=== PATIENT | male | born 1985 | race Caucasian/White ===

== ENCOUNTER 2021-07-03 14:29 | Outpatient (CLI) | payer OTHER, SELFPAY ==
[2021-07-03 17:54] LABS: Hematocrit 43.2 % (42.0-52.0); Hemoglobin 14.9 g/dL (14.0-18.0); Mean Corpuscular HGB Conc 34.5 g/dl (32-36); Mean Corpuscular Hemoglobin 29.6 pg (26-34); Mean Corpuscular Volume 85.7 fl (80-100); Mean Platelet Volume 10.1 fl (7.4-10.4); Platelet Count Result 291 k/mm3 (150-375); Red Blood Count 5.04 M/mm3 (4.6-6.20); Red Cell Distribution Width 12.8 % (11.5-14.5)
[2021-07-03 18:09] LABS: Alanine Aminotransferase 25 U/L (4-50); Albumin Level 4.8 g/dL (3.5-5.1); Alkaline Phosphatase 66 U/L (38-126); Anion Gap 11 mmol/L (8-16); Aspartate Amino Transferase 29 U/L (17-59); Bilirubin,Total 0.8 mg/dL (0.2-1.3); Blood Urea Nitrogen 16 mg/dL (9-20); Calcium 9.9 mg/dL (8.4-10.2); Carbon Dioxide 24 mmol/L (22-30); Chloride 105 mmol/L (98-107); Cholesterol 169 mg/dL (0-200); Estimated Glomerular Filt Rate > 60; Glucose 95 mg/dL (65-110); HDL Direct 30 mg/dL; Sodium 140 mmol/L (137-145); Triglycerides 165 mg/dL (<150)
[2021-07-03 18:20] LABS: LDL Cholesterol Direct 95 mg/dL
== END 2021-07-03 14:30 | disposition home or self-care (01) ==
PROVIDERS: PCP Family Medicine; Visit Provider Family Medicine
DX: Z00.00 Encounter for general adult medical examination without abnormal findings (principal)
CPT/HCPCS: 36415; 80053; 80061; 85027

== ENCOUNTER 2021-11-13 16:59 | Emergency (ER) | payer OTHER, SELFPAY ==
--- NOTE | ~2021-11-13 | CT_ITS ---
EXAMINATION: CT brain wo con DATE: 11/13/2021 19:16 INDICATION: head injury, hit by piece of metal,lac to forehead TECHNIQUE: Computed tomography (CT) of the head was performed without intravenous contrast. The mA wa s adjusted according to patient size. Iterative reconstruction technique was employed. The dose-lengt h product was 681.00 mGy-cm. COMPARISON: None FINDINGS: No acute intracranial hemorrhage or extra-axial fluid collection. No hydrocephalus, mass, or herniation. No acute ischemic infarct. Unremarkable dural venous sinus attenuation. No acute osseous abnormality. The aerated spaces are clear. IMPRESSION: No acute intracranial process. Reviewed, dictated and finalized at location K.
[2021-11-13 17:00] VITALS: BP 126/75; PULSE 82; RESP 15; TEMP 36.5; O2SAT 98
--- NOTE | 2021-11-13 18:52 | ED.WOUNDLAC ---
HPI - Wound/Laceration General Chief Complaint: Wound/Laceration Stated Complaint: FACIAL INJURY Time Seen by Provider: 11/13/21 18:34 Source: patient Mode of arrival: ambulatory Limitations: no limitations History of Present Illness HPI narrative: Patient is a 36-year-old male who presents the ED with report of a laceration to his forehead. Patient reports he was cleaning outside in his shed today when a piece of tin metal sheeting fell off a shelf and hit him in his head. He sustained a small laceration to his forehead. He denied losing consciousness, but did report having mild headache and lightheadedness after the initial incident. The symptoms have since resolved. No neck pain. Bleeding controlled upon my evaluation. Patient's tetanus status up-to-date as of a few months ago when he established care with a new PCP. Related Data Home Medications Medication Instructions Recorded Confirmed No Home Medications 07/03/21 07/03/21 Allergies Allergy/AdvReac Type Severity Reaction Status Date / Time No Known Allergies Allergy Verified 07/03/21 13:46 Review of Systems Review of Systems: CONSTITUTIONAL: Denies fever. SKIN: Reports laceration to forehead. Denies rash or itching. MUSCULOSKELETAL: Denies back pain, neck pain. NEUROLOGIC: Reports head injury, lightheadedness (resolved), headache (resolved). Denies confusion, numbness, tingling, weakness. All systems reviewed & are unremarkable except as noted in HPI and below PMFSH Past Medical History Medical History No pertinent past medical history Surgical History Surgical History History of appendectomy Family History Family History (Updated 07/03/21 @ 13:47 by Roxie Denis [facility]) Grandparent Diabetes mellitus Heart problem Social History Social History Smoking status: Never smoker Alcohol intake: current Drinks per week: 1 Substance use: never Gender identity (if verbalized by the patient): Male Exam Narrative: GENERAL: Well appearing, well-nourished, non-toxic, in no acute distress. HEAD: Normocephalic. 1 cm linear laceration to midline forehead just above glabella, 0.5cm of the laceration is superficial. NECK: Supple. No adenopathy. No pain with ROM. RESPIRATORY: Airway patent, respirations nonlabored. CARDIOVASCULAR: Regular rate and rhythm without murmurs, rubs, or gallops. Radial pulses 2+ and equal bilaterally. MUSCULOSKELETAL: Moves all extremities. Strength/ROM intact without gross deformities. SKIN: Warm, dry, normal color. No rashes. NEURO: A&O X3. Speech clear. Cranial nerves II-XII grossly intact. Steady gait. No ataxic movements. PSYCHIATRIC: Appropriate mood and affect. Normal interaction. Course Vital Signs Vital signs: Vital Signs Temperature 97.7 F 11/13/21 17:00 Pulse Rate 82 11/13/21 17:00 Respiratory Rate 15 11/13/21 17:00 Blood Pressure 126/75 11/13/21 17:00 Pulse Oximetry 98 11/13/21 17:00 Temperature 97.7 F 11/13/21 17:00 Pulse Rate 64 11/13/21 19:00 Respiratory Rate 17 11/13/21 19:00 Blood Pressure 120/80 11/13/21 19:00 Pulse Oximetry 97 11/13/21 19:00 Procedures Laceration Laceration 1: Date: 11/13/21 Time: 19:40 Site: face (forehead) Size (cm): 0.5 Description: linear Depth: simple, single layer Local Anesthetic: lidocaine 1% and with epi Amount of anesthesia used (mL): 5 Pre-repair: wound explored and irrigated ====== Skin Level ====== Skin layer closed with: nylon Size (cm): 4-0 Number of sutures: 1 Technique: simple, interrupted ====== Subcutaneous Layer ====== ====== Muscle Layer ====== ====== Tendon Layer ====== MDM - Wound/Laceration MDM Narrative Medical decision making narrative
[2021-11-13 19:00] VITALS: BP 120/80; PULSE 64; RESP 17; O2SAT 97
== END 2021-11-13 20:20 | disposition home or self-care (01) ==
PROVIDERS: Emergency Provider Emergency Medicine; PCP Family Medicine
DX: S01.81XA Laceration without foreign body of other part of head, initial encounter (principal); W20.8XXA Other cause of strike by thrown, projected or falling object, initial encounter
CPT/HCPCS: 12011; 70450; 99284

== ENCOUNTER → 2022-10-02 15:22 | Outpatient (CLI) | payer OTHER, SELFPAY ==
--- NOTE | ~2022-10-02 | MR_ITS ---
EXAMINATION: MR pituitary wo/w con DATE: 10/02/2022 16:23 INDICATION: Hypogonadism. TECHNIQUE: Magnetic resonance imaging (MRI) of the brain and brainstem was performed without and with 20 mL MultiHance intravenous contrast. COMPARISON: Head CT 11/13/2021 FINDINGS: The pituitary is normal in size with height of 4 mm and concave superior margin. The infund ibulum is at the midline. There is no intracranial hemorrhage, acute infarction, or abnormal intracra nial mass lesion. There are 3 foci of increased T2-weighted signal intensity in the cerebral white ma tter, which is normal for the patient's age. The ventricles are normal in size. There is a mucous ret ention cyst in left maxillary sinus. The orbits are normal. The mastoid air cells are normal. IMPRESSION: 1. Normal pituitary. Normal brain. Reviewed, dictated and finalized at location A.
== END ==
PROVIDERS: PCP Family Medicine; Visit Provider Family Medicine
DX: R79.89 Other specified abnormal findings of blood chemistry (principal); E23.0 Hypopituitarism
CPT/HCPCS: 70553; A9577

== ENCOUNTER 2023-04-08 07:17 | Outpatient (CLI) | payer OTHER, SELFPAY ==
[2023-04-08 19:45] LABS: Hematocrit 50.5 % (42.0-52.0); Mean Corpuscular HGB Conc 31.7 g/dl (32-36); Mean Corpuscular Hemoglobin 29.2 pg (26-34); Mean Corpuscular Volume 92.2 fl (80-100); Mean Platelet Volume 10.5 fl (7.4-10.4); Platelet Count Result 242 k/mm3 (150-375); Red Blood Count 5.48 M/mm3 (4.6-6.20); Red Cell Distribution Width 13.2 % (11.5-14.5); White Blood Count 6.4 K/mm3 (4.5-10.0)
[2023-04-13 13:45] LABS: Testosterone Free 218.3 pg/mL (35.0-155.0); Testosterone Total 745 ng/dL (250-1100)
== END 2023-04-08 07:18 | disposition home or self-care (01) ==
PROVIDERS: PCP Family Medicine; Visit Provider Family Medicine
DX: R68.82 Decreased libido (principal); R79.89 Other specified abnormal findings of blood chemistry
CPT/HCPCS: 36415; 84402; 84403; 85027

== ENCOUNTER 2023-08-01 11:58 | Emergency (ER) | payer OTHER, SELFPAY ==
[2023-08-01 12:10] VITALS: BP 118/89; PULSE 84; RESP 16; TEMP 36.4; O2SAT 99
--- NOTE | 2023-08-01 12:21 | ED.URI ---
HPI - URI/Sore Throat General Chief Complaint: Upper Respiratory Infection Stated Complaint: SORE THROAT Time Seen by Provider: 08/01/23 12:16 Source: patient and RN notes reviewed Mode of arrival: ambulatory Limitations: no limitations History of Present Illness HPI Narrative: 38-year-old male presents with concern for sore throat. Reports postnasal drainage as well. Reports symptoms started about 4 days ago. He denies taking any [id number] medications for his symptoms. He denies fever, body aches, chills, sweats. Reports occasional cough and he had a headache last week that has resolved. MD elicited complaint: sore throat Related Data Allergies Allergy/AdvReac Type Severity Reaction Status Date / Time No Known Allergies Allergy Verified 08/06/22 15:26 Review of Systems Review of Systems: CONSTITUTIONAL: Denies malaise, chills, sweats, or fever. EYES: Denies visual changes, redness, or discharge. ENT: Reports postnasal drainage and sore throat. CARDIOVASCULAR: Denies chest pain, palpitations, or edema. RESPIRATORY: Reports cough. Denies dyspnea. GASTROINTESTINAL: Denies abdominal pain, nausea, vomiting, diarrhea SKIN: Denies rash or itching. MUSCULOSKELETAL: Denies myalgia. NEUROLOGIC: Denies headache. All systems reviewed & are unremarkable except as noted in HPI and below PMFSH Past Medical History Medical History No pertinent past medical history Surgical History Surgical History History of appendectomy Family History Family History (Updated 07/03/21 @ 13:47 by Roxie Denis [facility]) Grandparent Diabetes mellitus Heart problem Social History Social History (Updated 08/06/22 @ 15:28 by Jacki Turk MA) Smoking status: Never smoker Alcohol intake: current Drinks per week: 1 Substance use: never Current Housing: Decline to Answer Concerned About Future Housing: Decline to Answer Difficulty Paying Gas/Electric Bills: Decline to Answer Difficulty Paying for Meds: Decline to Answer Currently Unemployed: Decline to Answer Difficulty w/ Childcare or Family Care: Decline to Answer Living arrangements: with family Gender identity (if verbalized by the patient): Male Comments At time of signature, agree with nursing past medical, surgical, social and family history. There is no relevant family history pertinent to the presenting complaint Exam Narrative: GENERAL: Well-appearing, well-nourished, and in no acute distress. HEAD: Normocephalic EYES: PERRLA, conjunctivae clear ENT: Nares clear, clear discharge. Mucous membranes moist. TM pearly gonzalez with dull light reflex bilaterally; no tragal tenderness. Oropharynx not erythematous without lesions. Tonsils not enlarged and without exudate, no drooling, no hoarseness, no trismus, uvula midline. NECK: Supple. No lymphadenopathy CHEST: Clear to auscultation, breath sounds equal. No wheezing, rhonchi, rales, or stridor. No respiratory distress, speaks in full sentences. HEART: Regular rate and rhythm. No murmur heard. SKIN: Warm, dry, no rash. NEURO: Alert and oriented x3. PSYCH: Normal mood and affect Course Course Emergency Course: Patient is aware of diagnosis, understands and agrees to treatment plan. Anticipatory guidance given. Patient agrees to follow-up as directed and is aware of reasons to seek care at the emergency department. Portions of this record may have been created with voice recognition software Level of Care: Express Care Visit Vital Signs Vital signs: Vital Signs Temperature 97.5 F L 08/01/23 12:10 Pulse Rate 84 08/01/23 12:10 Respiratory Rate 16 08/01/23 12:10 Blood Pressure 118/89 08/01/23 12:10 Pulse Oximetry 99 08/01/23 12:10 Temperature 97.5 F L 08/01/23 12:10 Pulse Rate 84 08/01/23 12:10 Respiratory Rate 16 08/01/23 12:10 Blood Pressure 118/
== END 2023-08-01 12:29 | disposition home or self-care (01) ==
PROVIDERS: Emergency Provider Nurse Practitioner; PCP Family Medicine
DX: J06.9 Acute upper respiratory infection, unspecified (principal)
CPT/HCPCS: 87081; 87880; 99213; G0463

== ENCOUNTER 2023-08-13 07:24 | Outpatient (CLI) | payer OTHER, SELFPAY ==
[2023-08-13 19:37] LABS: Hematocrit 49.6 % (42.0-52.0); Hemoglobin 15.7 g/dL (14.0-18.0); Mean Corpuscular HGB Conc 31.7 g/dl (32-36); Mean Corpuscular Hemoglobin 28.8 pg (26-34); Mean Platelet Volume 10.1 fl (7.4-10.4); Platelet Count Result 256 k/mm3 (150-375); Red Blood Count 5.45 M/mm3 (4.6-6.20); Red Cell Distribution Width 13.2 % (11.5-14.5)
[2023-08-13 20:53] LABS: LDL Cholesterol Direct 108 mg/dL
[2023-08-13 22:56] LABS: Alanine Aminotransferase 23 U/L (6-50); Albumin Level 4.4 g/dL (3.5-5.1); Alkaline Phosphatase 51 U/L (38-126); Anion Gap 7 mmol/L (8-16); Aspartate Amino Transferase 53 U/L (17-59); Bilirubin,Total 0.9 mg/dL (0.2-1.3); Blood Urea Nitrogen 18 mg/dL (9-20); Calcium 9.6 mg/dL (8.4-10.2); Carbon Dioxide 29 mmol/L (22-30); Chloride 104 mmol/L (98-107); Cholesterol 175 mg/dL (0-200); Estimated Glomerular Filt Rate > 60; Glucose 86 mg/dL (65-110); HDL Direct 24 mg/dL; Potassium 3.9 mmol/L (3.4-5.0); Sodium 140 mmol/L (137-145); Triglycerides 139 mg/dL (<150)
[2023-08-13 22:59] LABS: Prostate Specific Antigen 0.7 ng/mL (< OR = 4.0)
[2023-08-17 13:40] LABS: Testosterone Free 299.1 pg/mL (35.0-155.0); Testosterone Total 901 ng/dL (250-1100)
== END 2023-08-13 07:25 | disposition home or self-care (01) ==
PROVIDERS: PCP Nurse Practitioner Adult Health; Visit Provider Nurse Practitioner Adult Health
DX: Z12.5 Encounter for screening for malignant neoplasm of prostate (principal); Z13.9 Encounter for screening, unspecified
CPT/HCPCS: 36415; 80053; 80061; 84153; 84402; 84403; 85027; G0103

== ENCOUNTER 2024-02-15 07:10 | Outpatient (CLI) | payer OTHER, SELFPAY ==
[2024-02-15 20:16] LABS: Hematocrit 46.7 % (42.0-52.0); Hemoglobin 15.5 g/dL (14.0-18.0); Mean Corpuscular HGB Conc 33.2 g/dl (32-36); Mean Corpuscular Hemoglobin 30.2 pg (26-34); Mean Corpuscular Volume 90.9 fl (80-100); Mean Platelet Volume 10.2 fl (7.4-10.4); Platelet Count Result 243 k/mm3 (150-375); Red Blood Count 5.14 M/mm3 (4.6-6.20); Red Cell Distribution Width 12.9 % (11.5-14.5)
[2024-02-20 10:08] LABS: Testosterone Free 37.1 pg/mL (35.0-155.0); Testosterone Total 148 ng/dL (250-1100)
== END 2024-02-15 07:11 | disposition home or self-care (01) ==
PROVIDERS: PCP Nurse Practitioner Adult Health; Visit Provider Nurse Practitioner Adult Health
DX: R79.89 Other specified abnormal findings of blood chemistry (principal)
CPT/HCPCS: 36415; 84402; 84403; 85027

== ENCOUNTER 2024-04-05 09:20 | Outpatient (CLI) | payer SELFPAY ==
--- NOTE | ~2024-04-05 | MR_ITS ---
MRI of the left knee Clinical history: Contusion Technique: Coronal proton density and proton density-weighted images, sagittal proton-density and T2 fat-sat images, and axial proton-density fat-saturated images were acquired. Findings: Anterior and posterior cruciate ligaments are intact. Medial collateral ligament and the la teral collateral ligament complex are intact. Popliteus tendon is intact. Medial and lateral menisci are intact, without evidence of tear. Articular cartilage is relatively well preserved throughout the knee. There is mild marrow edema of t he inferior patellar pole and minimal irregularity at the patellar insertion. There is prominent tend inosis the proximal patellar tendon with minimal adjacent soft tissue edema. No significant joint eff usion or Osborne's cyst. Impression: Moderate to advanced proximal patellar tendinosis, with minimal edema at the inferior patellar pole. Findings could reflect jumpers knee or other tendinosis/overuse injury. Focal contusion at the inferi or patella pole is a potential alternative consideration. Reviewed, dictated and finalized at [facility]. Impression: Moderate to advanced proximal patellar tendinosis, with minimal edema at the in ferior patellar pole. Findings could reflect jumpers knee or other tendinosis/o veruse injury. Focal contusion at the inferior patella pole is a potential alte rnative consideration.
== END 2024-04-05 09:21 | disposition home or self-care (01) ==
LOC: GOSHIMG 09:21
DX: S80.02XA Contusion of left knee, initial encounter (principal); M76.52 Patellar tendinitis, left knee
CPT/HCPCS: 73721

== ENCOUNTER 2024-05-18 07:04 | Outpatient (CLI) | payer OTHER, SELFPAY | END 2024-05-18 07:05 | disposition home or self-care (01) | LOC: ANHBWCLAB 07:06 | PROVIDERS: Visit Provider Nurse Practitioner Adult Health | DX: R79.89 Other specified abnormal findings of blood chemistry (principal) | CPT/HCPCS: 36415; 84402; 84403 ==

== ENCOUNTER 2024-08-25 06:39 | Outpatient (CLI) | payer OTHER, SELFPAY ==
--- OUTSIDE RECORDS SUMMARY | 2024-08-25 06:42 | XMS_ITS | Clinical Summary ---
Author Organization [facility] Address [address] [place] [id number] Care Team Providers Care Lurer Name Role Phone None, Provider MD Primary Care Provider Unavaila ble Allergies No known active allergies Medications No known medications Family History Medical History Relation Comments No Known Problems Father Heart Disease Maternal Grandfather Heart Disease Maternal Grandmother No Known Problems Mother Heart Disease Paternal Grandfather Heart Disease Paternal Grandmother Relation Status Comments Father Maternal Grandfather Maternal Grandmother Mother Paternal Grandfather Paternal Grandmother Social History Tobacco Use Types Packs/Day Years Used Date Smoking Tobacco: Never Smokeless Tobacco: Never Alcohol Use Standard Drinks/Week Comments Not Currently 0 (1 standard drink = 0.6 oz pur e alcohol) AUDIT-C Answer Date Recorded Frequency of Alcohol Consumption Never 08/23/2019 Average Number of Drinks Not on file 020 Frequency of Binge Drinking Not on file 08/06 Sex and Gender Information Value Date Recorded Sex Assigned at Not on file Legal Sex Male 10:09 AM FERRYBOAT HELPER Gender Identity Not on file Sexual Orientation Not on file Last Filed Vital Signs Vital Sign Reading Time Taken Comments Blood Pressure 103/59 08/23/2019 11:30 AM FERRYBOAT HELPER Pulse 56 08/23/2019 12:00 PM FERRYBOAT HELPER Temperature 35.9 C (96.7 F) 08/23/2019 10:25 AM FERRYBOAT HELPER Respiratory Rate 13 08/23/2019 12:00 PM FERRYBOAT HELPER Oxygen Saturation 98% 08/23/2019 12:00 PM FERRYBOAT HELPER Inhaled Oxygen Concentration - - Weight 120.2 kg (265 lb) 08/23/2019 10:25 AM FERRYBOAT HELPER Height 190.5 cm (6' 3 ) 08/23/2019 10:25 AM FERRYBOAT HELPER Body Mass Index 33.12 08/23/2019 10:25 AM FERRYBOAT HELPER Plan of Treatment Health Maintenance Due Date Last Done Comments Annual Physical 1988 Hepatitis C 2003 DTaP, Tdap and Td Vaccines ( 1 - Tdap) 2004 Hepatitis B Vaccines (1 of 3 - 19+ 3-dose series) 2004 COVID-19 Vaccine (1 - 2023-2 5 season) 2024 Influenza Adult (#1) 2024 HPV Vaccines Aged Out No longer eligi ble based on patient's age to complete this topic Meningococcal B Vaccine Aged Out No l onger eligible based on patient's age to complete this topic Meningococcal Vaccine Aged Out No karine cheng eligible based on patient's age to complete this topic Pneumococcal Vaccine: Pediat rics (0 to 5 Years) and At-Risk Patients (6 to 64 Years) Aged Out No longer eligible b ased on patient's age to complete this topic RSV Immunizations Under 20 Months Aged Out No longer eligible based on patient's age to complete this topic Insurance [employer] Care Teams Lurer Relationship Specialty Start Date End Date None, Provider, PCP - General 08/23/19
--- OUTSIDE RECORDS SUMMARY | 2024-08-25 06:42 | XMS_ITS | Clinical Summary ---
Author Organization [facility] Address [facility] [place] [address] Care Team Providers Care Photographs Curator Name Role Phone Eze Tejada MD Primary Care Provider [phone] Allergies No known active allergies Medications No known medications Active Problems No known active problems Social History Tobacco Use Types Packs/Day Years Used Date Smoking Tobacco: Never Personal Safety Answer Date Recorded Getting School Help Needed Not on file 08/30 Sex and Gender Information Value Date Recorded Sex Assigned at Not on file Legal Sex Male 5:39 PM AGRICULTURE INSTRUCTOR Gender Identity Not on file Sexual Orientation Not on file Obstetrics History Last Filed Vital Signs Vital Sign Reading Time Taken Comments Blood Pressure 126/68 05/17/2022 6:28 PM AGRICULTURE INSTRUCTOR Pulse 78 05/17/2022 6:28 PM AGRICULTURE INSTRUCTOR Temperature 36.3 C (97.3 F) 05/17/2022 6:28 PM AGRICULTURE INSTRUCTOR Respiratory Rate 18 05/17/2022 6:28 PM AGRICULTURE INSTRUCTOR Oxygen Saturation 98% 05/17/2022 6:28 PM AGRICULTURE INSTRUCTOR Inhaled Oxygen Concentration - - Weight 122.5 kg (270 lb) 05/17/2022 6:28 PM AGRICULTURE INSTRUCTOR Height 190.5 cm (6' 3 ) 05/17/2022 6:28 PM AGRICULTURE INSTRUCTOR Body Mass Index 33.75 05/17/2022 6:28 PM AGRICULTURE INSTRUCTOR Plan of Treatment Health Maintenance Due Date Last Done Comments Depression Screening 1985 Hepatitis C Screening 1985 Varicella Vaccines (1 of 2 - 13+ 2-dose series) 1998 Hepatitis B Screening 2003 Regular Well Visit/Exam 18-64 2003 Influenza Vaccine (#1) 2024 DTaP/Tdap/Td Vaccine (2 - Td or Tdap) 07/03/2031 07/03/2021 HPV Vaccines Aged Out No longer eligi ble based on patient's age to complete this topic Pneumococcal vaccine <65 Aged Out No longer eligible based on patient's age to complete this topic Insurance [facility] Care Teams Photographs Curator Relationship Specialty Start Date End Date Eze Tejada MD [address] [place] [id number] PCP - General 06/09/17
--- OUTSIDE RECORDS SUMMARY | 2024-08-25 06:42 | XMS_ITS | Referral Summary ---
Author Organization [facility] Address [facility] [place] [address] Care Team Providers Care City Surveyor Name Role Phone Eze Tejada MD Primary Care Provider [phone] Allergies No known active allergies Medications No known medications Active Problems No known active problems Social History Tobacco Use Types Packs/Day Years Used Date Smoking Tobacco: Never Personal Safety Answer Date Recorded Getting School Help Needed Not on file 08/30 Sex and Gender Information Value Date Recorded Sex Assigned at Not on file Legal Sex Male 5:39 PM REGIONAL OPERATIONS MANAGER Gender Identity Not on file Sexual Orientation Not on file Last Filed Vital Signs Vital Sign Reading Time Taken Comments Blood Pressure 126/68 05/17/2022 6:28 PM REGIONAL OPERATIONS MANAGER Pulse 78 05/17/2022 6:28 PM REGIONAL OPERATIONS MANAGER Temperature 36.3 C (97.3 F) 05/17/2022 6:28 PM REGIONAL OPERATIONS MANAGER Respiratory Rate 18 05/17/2022 6:28 PM REGIONAL OPERATIONS MANAGER Oxygen Saturation 98% 05/17/2022 6:28 PM REGIONAL OPERATIONS MANAGER Inhaled Oxygen Concentration - - Weight 122.5 kg (270 lb) 05/17/2022 6:28 PM REGIONAL OPERATIONS MANAGER Height 190.5 cm (6' 3 ) 05/17/2022 6:28 PM REGIONAL OPERATIONS MANAGER Body Mass Index 33.75 05/17/2022 6:28 PM REGIONAL OPERATIONS MANAGER Plan of Treatment Not on file Insurance [employer] Care Teams City Surveyor Relationship Specialty Start Date End Date Eze Tejada MD [facility] [place] [address] PCP - General 06/09/17
[2024-08-25 20:16] LABS: Alanine Aminotransferase 20 U/L (6-50); Albumin Level 4.6 g/dL (3.5-5.1); Alkaline Phosphatase 56 U/L (38-126); Anion Gap 8 mmol/L (4-12); Aspartate Amino Transferase 40 U/L (17-59); Bilirubin,Total 0.9 mg/dL (0.2-1.3); Blood Urea Nitrogen 14 mg/dL (9-20); Calcium 9.6 mg/dL (8.4-10.2); Carbon Dioxide 29 mmol/L (22-30); Chloride 102 mmol/L (98-107); Cholesterol 168 mg/dL (0-200); Estimated Glomerular Filt Rate > 60; Glucose 92 mg/dL (65-110); HDL Direct 30 mg/dL; Potassium 4.2 mmol/L (3.4-5.0); Sodium 139 mmol/L (137-145); Triglycerides 202 mg/dL (<150)
[2024-08-25 20:23] LABS: Hematocrit 49.8 % (42.0-52.0); Hemoglobin 16.1 g/dL (14.0-18.0); Mean Corpuscular HGB Conc 32.3 g/dl (32-36); Mean Corpuscular Hemoglobin 29.6 pg (26-34); Mean Corpuscular Volume 91.5 fl (80-100); Platelet Count Result 266 k/mm3 (150-375); Red Blood Count 5.44 M/mm3 (4.6-6.20); Red Cell Distribution Width 13.1 % (11.5-14.5); White Blood Count 6.8 K/mm3 (4.5-10.0)
[2024-08-25 20:27] LABS: LDL Cholesterol Direct 106 mg/dL
[2024-08-31 03:38] LABS: Testosterone Free 240.5 pg/mL (35.0-155.0); Testosterone Total 826 ng/dL (250-1100)
== END 2024-08-25 06:40 | disposition home or self-care (01) ==
LOC: ANHBWCLAB 06:40
PROVIDERS: PCP Nurse Practitioner Adult Health; Visit Provider Nurse Practitioner Adult Health
DX: R79.89 Other specified abnormal findings of blood chemistry (principal); Z13.9 Encounter for screening, unspecified
CPT/HCPCS: 36415; 80053; 80061; 84402; 84403; 85027

== ENCOUNTER 2025-02-07 06:34 | Outpatient (CLI) | payer OTHER, SELFPAY ==
--- OUTSIDE RECORDS SUMMARY | 2025-02-07 06:36 | XMS_ITS | Referral Summary ---
Author Organization [facility] Address [facility] [place] [address] Care Team Providers Care Head Of Training And Development Name Role Phone Eze Tejada MD Primary Care Provider [phone] Allergies No known active allergies Medications No known medications Active Problems No known active problems Social History Tobacco Use Types Packs/Day Years Used Date Smoking Tobacco: Never Personal Safety Answer Date Recorded Getting School Help Needed Not on file 08/30 Sex and Gender Information Value Date Recorded Sex Assigned at Not on file Legal Sex Male 5:39 PM INSPECTOR FLOOR SUB ASSEMBLY Gender Identity Not on file Sexual Orientation Not on file Last Filed Vital Signs Vital Sign Reading Time Taken Comments Blood Pressure 126/68 05/17/2022 6:28 PM INSPECTOR FLOOR SUB ASSEMBLY Pulse 78 05/17/2022 6:28 PM INSPECTOR FLOOR SUB ASSEMBLY Temperature 36.3 C (97.3 F) 05/17/2022 6:28 PM INSPECTOR FLOOR SUB ASSEMBLY Respiratory Rate 18 05/17/2022 6:28 PM INSPECTOR FLOOR SUB ASSEMBLY Oxygen Saturation 98% 05/17/2022 6:28 PM INSPECTOR FLOOR SUB ASSEMBLY Inhaled Oxygen Concentration - - Weight 122.5 kg (270 lb) 05/17/2022 6:28 PM INSPECTOR FLOOR SUB ASSEMBLY Height 190.5 cm (6' 3) 05/17/2022 6:28 PM INSPECTOR FLOOR SUB ASSEMBLY Body Mass Index 33.75 05/17/2022 6:28 PM INSPECTOR FLOOR SUB ASSEMBLY Plan of Treatment Not on file Insurance [employer] Care Teams Head Of Training And Development Relationship Specialty Start Date End Date Eze Tejada MD [facility] [place] [address] PCP - General 06/09/17
--- OUTSIDE RECORDS SUMMARY | 2025-02-07 06:36 | XMS_ITS | Clinical Summary ---
Author Organization [facility] Address [address] [place] [address] Care Team Providers Care Heavy Equipment Mechanic Name Role Phone None, Provider MD Primary [...] on file Legal Sex Male 10:09 AM SHOE DYER Gender Identity Not on file Sexual Orientation Not on file Last Filed Vital Signs Vital Sign Reading Time Taken Comments Blood Pressure 103/59 08/23/2019 11:30 AM SHOE DYER Pulse 56 08/23/2019 12:00 PM SHOE DYER Temperature 35.9 C (96.7 F) 08/23/2019 10:25 AM SHOE DYER Respiratory Rate 13 08/23/2019 12:00 PM SHOE DYER Oxygen Saturation 98% 08/23/2019 12:00 PM SHOE DYER Inhaled Oxygen Concentration - - Weight 120.2 kg (265 lb) 08/23/2019 10:25 AM SHOE DYER Height 190.5 cm (6' 3) 08/23/2019 10:25 AM SHOE DYER Body Mass Index 33.12 08/23/2019 10:25 AM SHOE DYER Plan of Treatment Health Maintenance Due Date Last Done Comments Annual Physical 1988 Hepatitis C 2003 DTaP, Tdap and Td Vaccines ( 1 - Tdap) 2004 Hepatitis B Vaccines (1 of 3 - 19+ 3-dose series) 2004 HPV Vaccines (1 - 3-dose SCD M series) 2012 COVID-19 Vaccine (1 - 2023-2 5 season) 2024 Meningococcal B Vaccine Aged Out No l onger eligible based on patient's age to complete this topic Meningococcal Vaccine Aged Out No karine cheng eligible based on patient's age to complete this topic Pneumococcal Vaccine: Pediat rics (0 to 5 Years) and At-Risk Patients (6 to 49 Years) Aged Out No longer eligible b ased on patient's age to complete this topic RSV Immunizations Under 20 Months Aged Out No longer eligible based on patient's age to complete this topic Insurance [employer] [place] Care Teams Heavy Equipment Mechanic Relationship Specialty Start Date End Date None, Provider, PCP - General 08/23/19
--- OUTSIDE RECORDS SUMMARY | 2025-02-07 06:36 | XMS_ITS | Clinical Summary ---
Author Organization [facility] Address [facility] [place] [address] Care Team Providers Care Electrical Automation Engineer Name Role Phone Eze Tejada MD Primary Care Provider Allergies No known active allergies Medications No known medications Active Problems No known active problems Social History Tobacco Use Types Packs/Day Years Used Date Smoking Tobacco: Never Personal Safety Answer Date Recorded Getting School Help Needed Not on file 08/30 Sex and Gender Information Value Date Recorded Sex Assigned at Not on file Legal Sex Male 5:39 PM C JAVA DEVELOPER Gender Identity Not on file Sexual Orientation Not on file Obstetrics History Last Filed Vital Signs Vital Sign Reading Time Taken Comments Blood Pressure 126/68 05/17/2022 6:28 PM C JAVA DEVELOPER Pulse 78 05/17/2022 6:28 PM C JAVA DEVELOPER Temperature 36.3 C (97.3 F) 05/17/2022 6:28 PM C JAVA DEVELOPER Respiratory Rate 18 05/17/2022 6:28 PM C JAVA DEVELOPER Oxygen Saturation 98% 05/17/2022 6:28 PM C JAVA DEVELOPER Inhaled Oxygen Concentration - - Weight 122.5 kg (270 lb) 05/17/2022 6:28 PM C JAVA DEVELOPER Height 190.5 cm (6' 3) 05/17/2022 6:28 PM C JAVA DEVELOPER Body Mass Index 33.75 05/17/2022 6:28 PM C JAVA DEVELOPER Plan of Treatment Health Maintenance Due Date Last Done Comments Depression Screening 1985 Hepatitis C Screening 1985 Varicella Vaccines (1 of 2 - 13+ 2-dose series) 1998 Hepatitis B Screening 2003 Regular Well Visit/Exam 18-64 2003 HPV Vaccines (1 - 3-dose SCD M series) 2012 Influenza Vaccine (#1) 2025 DTaP/Tdap/Td Vaccine (2 - Td or Tdap) 07/03/2031 07/03/2021 Pneumococcal vaccine <65 Aged Out No longer eligible based on patient's age to complete this topic Insurance [employer] Care Teams Electrical Automation Engineer Relationship Specialty Start Date End Date Eze Tejada MD [address] [place], [place] [id number] PCP - General 06/09/17
[2025-02-15 13:08] LABS: Free Testosterone (Direct) 23.5 pg/mL (8.7-25.1)
== END 2025-02-07 06:35 | disposition home or self-care (01) ==
LOC: ANHBWCLAB 06:34
PROVIDERS: PCP Nurse Practitioner Adult Health; Visit Provider Nurse Practitioner Adult Health
DX: R79.89 Other specified abnormal findings of blood chemistry (principal)
CPT/HCPCS: 84402; 84403